=== PATIENT | female | born 1965 | race Caucasian/White ===

== ENCOUNTER 2017-07-08 19:18 | Emergency (ER) | payer BC, OTHER ==
[~2017-07-08] VITALS: Ht 162.6 cm; Wt 79.3 kg
[2017-07-08 19:24] VITALS: TEMP 36.6
[2017-07-08] MEDS ORDERED: VENL75CA73 PO (19:44)
[2017-07-08] MEDS ORDERED: IBUP-1050 PO (19:44)
[2017-07-08] MEDS ORDERED: MULT-920 PO (19:44)
[2017-07-08] MEDS ORDERED: CYCL10TA6 PO (19:44)
[2017-07-08] MEDS ORDERED: SODIUM CHLORIDE 0.9% 1000ML 1,000 ML IV STA (19:59)
[2017-07-08 20:03] VITALS: Ht 162.6 cm; Wt 79.3 kg
[2017-07-08 20:12] LABS: BASO % 0.4 %; BASO ABS # 0.03 K/uL (0-0.2); COMPLETE YES; EOS % 1.9 %; HEMATOCRIT 37.7 % (37-47); IG% 0.1 %; LYMPH % 25.9 %; LYMPH ABS # 2.19 K/uL (1.2-3.4); MEAN CORPUSCULAR HEMOGLOBIN 30.3 pg (25-34); MEAN CORPUSCULAR HGB CONC 33.7 g/dl (32-36); MEAN PLATELET VOLUME 9.4 fL (7.4-10.4); MONO % 6.5 %; NEUT % 65.2 %; PLATELET COUNT 301 K/uL (130-400); RED BLOOD COUNT 4.19 M/uL (4.2-5.4); WHITE BLOOD COUNT 8.44 K/uL (4.8-10.8)
[2017-07-08 20:24] LABS: INR 0.9 (0.9-1.1); PARTIAL THROMBOPLASTIN RATIO 1.1
[2017-07-08 20:28] LABS: BUN/CREATININE RATIO 22.9 (10-20); CALCIUM 9.2 mg/dl (8.5-10.1); CREATININE 0.79 mg/dl (0.60-1.20); POTASSIUM 3.9 mmol/L (3.5-5.1)
--- NOTE | 2017-07-08 20:31 | DIAGNOSTIC IMAGING REPORT ---
CHEST ONE VIEW PORTABLE CLINICAL HISTORY: EVALUATE WEAKNESS mental status change COMPARISON STUDY: No previous studies for comparison. FINDINGS: The bones soft tissues and hemidiaphragms are normal. The cardiomediastinal silhouette is normal. The lungs are clear. The pulmonary vasculature is normal. IMPRESSION: Negative chest. The above report was generated using voice recognition software. It may contain grammatical, syntax or spelling errors. Electronically signed by: Leonard Blood M.D. 07/08/2017 8:30 PM Dictated Date/Time: 07/08/2017 8:30 PM
[2017-07-08 20:34] LABS: URINE APPEARANCE CLOUDY (CLEAR); URINE BILIRUBIN NEG (NEG); URINE COLOR YELLOW; URINE EPITHELIAL CELL AUTO 20-30 /lpf (0-5); URINE NITRITE NEG (NEG); URINE SPECIFIC GRAVITY 1.019 (1.000-1.030); UROBILINOGEN NEG (NEG)
[2017-07-08 20:39] LABS: CKMB/CK RATIO 1.1 (0-3.0); THYROID STIMULATING HORMONE 1.51 uIu/ml (0.300-4.500)
[2017-07-08 20:42] LABS: MANUAL MICROSCOPIC REQUIRED? NO; REVIEW REQ? NO
[2017-07-08 23:21] VITALS: BP 152/82; PULSE 86; O2SAT 95
--- NOTE | 2017-07-09 00:14 | EMERGENCY ROOM VISIT NOTE ---
History Report prepared by Lizzie: Makenzie Coello Under the Supervision of: Dr. Charan Hernandez M.D. First contact with patient: 19:59 Chief Complaint: CARDIAC ASSESSMENT Stated Complaint: RAPID HEARTBEAT,PAIN IN R SHOULDER INTO CHEST History of Present Illness The patient is a 51 year old female who presents to the Emergency Room with complaints of persistent right sided chest pain that began today while at work. She currently rates her discomfort as a 6/10 in severity. The patient states that today while at work she started not feeling right. 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 She states that she was found to have a blood pressure of 180/80 and notes that her pulse was tachycardic at a rate of 104 beats per minute. The patient states that she developed right shoulder pain that she radiates as an 8/ 10 in severity. She states that it was suggested that she go to the emergency department due to her symptoms. The patient states that her symptoms began while at rest and additionally reports lightheadedness. She states that she has had similar symptoms in the past that related back to her anxiety. The patient states that she has noticed chest pain radiate across her chest today. She reports a minor headache. Pt denies LOC, fevers, chills, diaphoresis, visual changes, neck pain, breathing difficulties, nausea, vomiting, abdominal pain, back pain, melena, hematochezia, urinary symptoms, numbness, weakness, lymphadenopathy, rash, or other complaints. Source of History: patient Onset: today while at work Position: chest (right) Symptom Intensity: 6/10 Timing: other (persistent) Associated Symptoms: + headache Note: Associated Symptoms: tachycardia, hypertension, lightheadedness, right shoulder pain Review of Systems See HPI for pertinent positives and negatives. A total of ten systems were reviewed and were otherwise negative. Past Medical & Surgical Medical Problems: (1) Pneumonia Surgical Problems: (1) S/P section Family History Cancer Diabetes mellitus Heart disease Social History Smoking Status: Never Smoker Smokeless Tobacco Use: No Alcohol Use: none Marital Status: single Housing Status: lives with family Occupation Status: employed Current/Historical Medications Scheduled Multiple Vitamins W/ Minerals (Airborne), 1 TAB PO DAILY Venlafaxine Hcl (Venlafaxine Extended Rel), 75 MG PO DAILY Scheduled PRN Cyclobenzaprine Hcl (Flexeril), 1 TAB PO HS PRN for Muscle Spasms Ibuprofen (Advil), 800 MG PO BID PRN for Pain Allergies Coded Allergies: Sulfa Drugs (Verified Allergy, Intermediate, HIVES, 01/06/10) Physical Exam Vital Signs Date Time Temp Pulse Resp B/P (MAP) Pulse Ox O2 Delivery O2 Flow Rate FiO2 07/08/17 23:21 86 25 152/82 95 07/08/17 21:29 87 17 151/89 99 Room Air 07/08/17 20:32 80 07/08/17 20:04 Room Air 07/08/17 20:04 Room Air 07/08/17 19:24 36.6 106 16 156/105 99 Room Air Physical Exam GENERAL: Awake, alert, mildly anxious-appearing, in no distress HENT: Normocephalic, atraumatic. Oropharynx unremarkable. EYES: Normal conjunctiva. Sclera non-icteric. NECK: Supple. No nuchal rigidity. FROM. No JVD. RESPIRATORY: Clear to auscultation. CARDIAC: Regular rate, normal rhythm. Extremities warm and well perfused. Pulses equal. ABDOMEN: Soft, non-distended. No tenderness to palpation. No rebound or guarding. No masses. RECTAL: Deferred. MUSCULOSKELETAL: Chest examination reveals no tenderness. The back is symmetrical on inspection without obvious abnormality. There is no CVA tenderness to palpation. No joint edema. LOWER EXTREMITIES: Calves are equal size bilaterally and non-tender. No edema. No discoloration. NEURO: Normal sensorium. No sensory or motor deficits noted. SKIN: No rash or jaundice noted. Medical Decision & Procedures ER Provider Diagnostic Interpretation: X-ray: Per my interpretation, radiologist review. CHEST ONE VIEW PORTABLE CLINICAL HISTORY: EVALUATE WEAKNESS mental status change COMPARISON STUDY: No previous studies for comparison. FINDINGS: The bones soft tissues and hemidiaphragms are normal. The cardiomediastinal silhouette is normal. The lungs are clear. The pulmonary vasculature is normal. IMPRESSION: Negative chest. The above report was generated using voice recognition software. It may contain grammatical, syntax or spelling errors. Electronically signed by: Leonard Blood M.D. 07/08/2017 8:30 PM Dictated Date/Time: 07/08/2017 8:30 PM Laboratory Results 07/08/17 20:00 Red Blood Count 4.19, Mean Corpuscular Volume 90.0, Mean Corpuscular Hemoglobin 30.3, Mean Corpuscular Hemoglobin Concent 33.7, Mean Platelet Volume 9.4, Neutrophils (%) (Auto) 65.2, Lymphocytes (%) (Auto) 25.9, Monocytes (%) (Auto) 6.5, Eosinophils (%) (Auto) 1.9, Basophils (%) (Auto) 0.4, Neutrophils # (Auto) 5.50, Lymphocytes # (Auto) 2.19, Monocytes # (Auto) 0.55, Eosinophils # (Auto) 0.16, Basophils # (Auto) 0.03 07/08/17 20:00 Test 07/08/17 20:00 07/08/17 20:20 07/08/17 22:11 White Blood Count 8.44 K/uL (4.8-10.8) Red Blood Count 4.19 M/uL (4.2-5.4) Hemoglobin 12.7 g/dL (12.0-16.0) Hematocrit 37.7 % (37-47) Mean Corpuscular Volume 90.0 fL (80-100) Mean Corpuscular Hemoglobin 30.3 pg (25-34) Mean Corpuscular Hemoglobin Concent 33.7 g/dl (32-36) Platelet Count 301 K/uL (130-400) Mean Platelet Volume 9.4 fL (7.4-10.4) Neutrophils (%) (Auto) 65.2 % Lymphocytes (%) (Auto) 25.9 % Monocytes (%) (Auto) 6.5 % Eosinophils (%) (Auto) 1.9 % Basophils (%) (Auto) 0.4 % Neutrophils # (Auto) 5.50 K/uL (1.4-6.5) Lymphocytes # (Auto) 2.19 K/uL (1.2-3.4) Monocytes # (Auto) 0.55 K/uL (0.11-0.59) Eosinophils # (Auto) 0.16 K/uL (0-0.5) Basophils # (Auto) 0.03 K/uL (0-0.2) RDW Standard Deviation 40.6 fL (36.4-46.3) RDW Coefficient of Variation 12.5 % (11.5-14.5) Immature Granulocyte % (Auto) 0.1 % Immature Granulocyte # (Auto) 0.01 K/uL (0.00-0.02) Prothrombin Time 10.0 SECONDS (9.0-12.0) Prothromb Time International Ratio 0.9 (0.9-1.1) Activated Partial Thromboplast Time 29.7 SECONDS (21.0-31.0) Partial Thromboplastin Ratio 1.1 D-Dimer 310 ug/L FEU (0-500) Anion Gap 7.0 mmol/L (3-11) Est Creatinine Clear Calc Drug Dose 83.9 ml/min Estimated GFR () 99.1 Estimated GFR (Non- 85.5 BUN/Creatinine Ratio 22.9 (10-20) Calcium Level 9.2 mg/dl (8.5-10.1) Magnesium Level 2.0 mg/dl (1.8-2.4) Total Bilirubin 0.2 mg/dl (0.2-1) Direct Bilirubin 0.1 mg/dl (0-0.2) Aspartate Amino Transf (AST/SGOT) 23 U/L (15-37) Alanine Aminotransferase (ALT/SGPT) 29 U/L (12-78) Alkaline Phosphatase 90 U/L (45-117) Total Creatine Kinase 148 U/L (26-192) Creatine Kinase MB 1.7 ng/ml (0.5-3.6) Creatine Kinase MB Ratio 1.1 (0-3.0) Total Protein 7.7 gm/dl (6.4-8.2) Albumin 3.7 gm/dl (3.4-5.0) Thyroid Stimulating Hormone (TSH) 1.510 uIu/ml (0.300-4.500) Urine Color YELLOW Urine Appearance CLOUDY (CLEAR) Urine pH 7.0 (4.5-7.5) Urine Specific [place] 1.019 (1.000-1.030) Urine Protein NEG (NEG) Urine Glucose (UA) NEG (NEG) Urine Ketones NEG (NEG) Urine Occult Blood NEG (NEG) Urine Nitrite NEG (NEG) Urine Bilirubin NEG (NEG) Urine Urobilinogen NEG (NEG) Urine Leukocyte Esterase SMALL (NEG) Urine WBC (Auto) 1-5 /hpf (0-5) Urine RBC (Auto) 5-10 /hpf (0-4) Urine Hyaline Casts (Auto) 0 /lpf (0-5) Urine Epithelial Cells (Auto) 20-30 /lpf (0-5) Urine Bacteria (Auto) NEG (NEG) Troponin I 0.017 ng/ml (0-0.045) Laboratory results reviewed by me Medications Administered Medications (Trade) Dose Ordered Sig/Kayleigh Route Start Time Stop Time Status Last Admin Dose Admin Sodium Chloride 1,000 ml @ 125 mls/hr Q8H STAT IV 07/08/17 19:59 07/09/17 00:01 DC 07/08/17 20:28 125 MLS/HR ECG Indication: chest pain, tachycardia Rate (beats per minute): 93 Rhythm: normal sinus Findings: no acute ischemic change, no ectopy ED Course 1958: Ordered Sodium Chloride 1000 ml @ 125 mls/hr IV. 1999: The patient was evaluated in room B6. A complete history and physical exam was performed by the medical student. 2046: The patient was evaluated in room B6. A complete history and physical exam was performed. 2306: I reevaluated the patient and she is resting comfortably. I discussed the exam findings with her and I discussed the treatment plan. She verbalized complete understanding and agreement. She is ready to go home. Medical Decision Triage Nursing notes reviewed. The patient's presentation and history were concerning for chest pain and hypertension. Etiologies such as cardiac ischemia, aortic dissection, pulmonary embolism, pneumonia, pneumothorax, musculoskeletal, infections, gastrointestinal, anxiety as well as others were entertained. The patient was evaluated. Clinically she was doing well. She questioned if this could be related to anxiety as she has been dealing with the of her father a few months ago. I discussed doing a workup as he would be most prudent and the patient was in agreement. She was hydrated. ECG was unremarkable. She declined analgesia. Her CBC, chemistry panel, LFTs, lipase, and cardiac markers were negative. D-dimer was negative as well. The patient was observed. Chest x-ray is unremarkable. The patient had a repeat troponin and ECG performed. These were nonischemic. On reassessment the patient was feeling better. Her pressure improved without direct intervention. I discussed close outpatient follow-up with the patient and she was in agreement. Her blood pressure will need to be monitored but treatment is not indicated immediately. She will rest. She will avoid heavy exertion or physical stress until follow-up. Her mood is normal at this time. The patient feels very comfortable with the plan. If she worsens in any way she will be back. By the evaluation outlined above other emergent etiologies such as those listed in the differential, as well as others, were deemed relatively unlikely. The patient was educated about the findings as listed above. All questions were answered and the patient was pleased with the treatment. Return instructions were outlined and the patient was discharged in stable condition. The patient was referred to her pcp for follow-up for a recheck of the current condition. Medication Reconcilliation Current Medication List: was personally reviewed by me Blood Pressure Screening Patient's blood pressure: Elevated blood pressure Blood pressure disposition: Referred to PCP Impression Primary Impression: Right-sided chest pain Additional Impression: Palpitations Scribe Attestation The scribe's documentation has been prepared under my direction and personally reviewed by me in its entirety. I confirm that the note above accurately reflects all work, treatment, procedures, and medical decision making performed by me. Departure Information Dispostion Home / Self-Care Referrals Moose Arteaga D.O. Forms IMPORTANT VISIT INFORMATION Patient Instructions [facility] Additional Instructions CHEST PAIN INSTRUCTIONS: Ibuprofen(Motrin, Advil) may be used for fever or pain. Use 600mg every six hours as needed. Take with food. Avoid using more than 2400mg in a 24 hour period. Do not use 2400mg per day for more than three consecutive days without physician direction. Prolonged inappropriate use can lead to stomach upset or ulcers. (AND/OR) Acetaminophen(Tylenol) may be used for fever or pain. Use 1000mg every six hours as needed. Avoid using more than 4000mg in a 24 hour period. Rest and drink plenty of fluids as tolerated. Continue current medications. Avoid strenuous activities and anything that worsens your pain. Resume normal activities once your symptoms resolve. Return to the ER immediately for worsening or persistent chest pain, abdominal pain, vomiting, fevers, chest pains, difficulty breathing, worsening of your condition, or as needed. Follow up with your primary physician in 2-3 days for a recheck of your current condition. Problem Qualifiers
== END 2017-07-08 23:22 | disposition home or self-care (01) ==
LOC: C.EDB 19:20
DX: R07.9 Chest pain, unspecified (principal); R00.2 Palpitations; Z87.01 Personal history of pneumonia (recurrent); Z98.891 History of uterine scar from previous surgery; Z83.3 Family history of diabetes mellitus